=== PATIENT | female | born 1985 | race Caucasian/White ===

== ENCOUNTER 2017-01-15 04:30 | Inpatient (IN) | payer OTHER ==
[~2017-01-15] VITALS: Ht 162.6 cm; Wt 80.9 kg
[~2017-01-15 04:30] MED LIST: MONT10TA6 PO
[2017-01-15] MEDS ORDERED: LACTATED RINGERS 1,000 ML IV SCH (05:44)
[2017-01-15] MEDS ORDERED: OXYTOCIN 30U/ 0.9% NaCL 500ML 500 ML IV ONE (05:44)
[2017-01-15] MEDS ORDERED: OXYTOCIN 30U/ 0.9% NaCL 500ML 500 ML IV PRN (05:44)
[2017-01-15] MEDS ORDERED: D5%-LACTATED RINGERS 1,000 ML IV SCH (05:44)
[2017-01-15] MEDS ORDERED: NEWBORN KIT ONE (05:48)
[2017-01-15 06:00] LABS: HEMOGLOBIN 11.9 g/dL (11.7-16.4); WHITE BLOOD COUNT 15.7 x10^3/uL (3.4-10)
[2017-01-15] MEDS ORDERED: CALCIUM CARBONATE 500 MG TAB.CHEW PO PRN (06:00)
[2017-01-15] MEDS ORDERED: FENTANYL PF 100 MCG/2ML IV PRN (06:00)
[2017-01-15] MEDS ORDERED: ONDANSETRON 2MG/ML, 2ML IVPush PRN (06:00)
[2017-01-15] MEDS ORDERED: FENTANYL PF 100 MCG/2ML ONE ×2 (06:15→07:15)
[2017-01-15] MEDS: FENTANYL PF 100 MCG/2ML IVPush PRN ×2 (06:19→07:17)
[2017-01-15] MEDS ORDERED: FLU VACC QS2017-18 (36MOS+) UP/PF 0.5 ML IM-VACC ONE (06:30)
[2017-01-15] MEDS ORDERED: FENTANYL/BUPIV./NS/PF 250 ML EPIDCONT SCH (07:22)
[2017-01-15] MEDS ORDERED: FENTANYL/BUPIV./NS/PF 250 ML EPIDCONT ONE (07:23)
[2017-01-15] MEDS ORDERED: BUPIVACAINE/PF 0.25% ONE (07:23)
[2017-01-15] MEDS ORDERED: LACTATED RINGERS 1,000 ML IVBOLUS PRN (07:30)
[2017-01-15] MEDS ORDERED: EPHEDRINE 50 MG/ML, 1ML IVPush PRN (07:30)
[2017-01-15] MEDS ORDERED: NALOXONE 0.4 MG/ML, 1ML IVPush PRN (07:30)
[2017-01-15] MEDS: LACTATED RINGERS 1,000 ML IV SCH ×3 (10:52→23:22)
[2017-01-15] MEDS: OXYTOCIN 30U/ 0.9% NaCL 500ML 500 ML IV SCH (14:53)
[2017-01-15] MEDS ORDERED: ONDANSETRON 2MG/ML, 2ML IV PRN (15:00)
[2017-01-15] MEDS ORDERED: HYDROcodone/APAP 5/325 TABLET PO PRN (15:00)
[2017-01-15] MEDS ORDERED: MISOPROSTOL 200 MCG TABLET PR PRN (15:00)
[2017-01-15] MEDS ORDERED: ACETAMINOPHEN 325 MG TABLET PO PRN (15:00)
[2017-01-15] MEDS ORDERED: METHYLERGONOVINE 0.2 MG/ML IM PRN (15:00)
[2017-01-15] MEDS ORDERED: CARBOPROST TROMETHAMINE 250 MCG/ML, 1ML IM PRN (15:00)
[2017-01-15 15:50] VITALS: BP 118/75
[2017-01-15] MEDS: DOCUSATE 100 MG CAPSULE PO PRN (19:28)
[2017-01-15] MEDS: IBUPROFEN 600 MG TABLET PO PRN (19:28)
[2017-01-15 20:15] VITALS: BP 111/73
[2017-01-15] MEDS: HYDROcodone/APAP 5/325 TABLET PO PRN (22:43)
[2017-01-16 00:30] VITALS: BP 114/77
[2017-01-16] MEDS: OXYTOCIN 30U/ 0.9% NaCL 500ML 500 ML IV SCH ×2 (00:53→10:53)
[2017-01-16] MEDS: IBUPROFEN 600 MG TABLET PO PRN ×2 (03:40→11:51)
[2017-01-16] MEDS: HYDROcodone/APAP 5/325 TABLET PO PRN ×2 (03:40→11:51)
[2017-01-16 03:41] VITALS: BP 114/74
[2017-01-16 05:47] LABS: HEMOGLOBIN 12.1 g/dL (11.7-16.4); WHITE BLOOD COUNT 19.1 x10^3/uL (3.4-10)
[2017-01-16 06:45] VITALS: BP 105/70
[2017-01-16] MEDS: LACTATED RINGERS 1,000 ML IV SCH (07:22)
[2017-01-16] MEDS: DOCUSATE 100 MG CAPSULE PO PRN (08:22)
[2017-01-16] MEDS ORDERED: PRENATAL VIT/IRON/FA 1 EACH TABLET PO SCH (09:00)
[2017-01-16] MEDS ORDERED: FLU VACC QS2017-18 (36MOS+) UP/PF 0.5 ML IM-VACC ONE (11:30)
[2017-01-16 12:15] VITALS: BP 120/82
[2017-01-16 16:20] VITALS: BP 108/73
[2017-01-16] MEDS ORDERED: IBUP200T48 PO (16:21)
[2017-01-16] MEDS ORDERED: HYDR-3240 PO (16:23)
[2017-01-16] MEDS ORDERED: DOCU-131 PO (16:23)
== END 2017-01-16 16:53 | disposition home or self-care (01) | DRG 775 ==
LOC: LDOP 04:30 → EDIP 05:50 → LDIP 05:58 → 2NW 15:30
PROVIDERS: ADMIT Obstetrics & Gynecology; ATTEND Obstetrics & Gynecology
PROC: 10E0XZZ Delivery of Products of Conception, External Approach (ICD-10-PCS; principal; 2017-01-15)
PROC: 0HQ9XZZ Repair Perineum Skin, External Approach (ICD-10-PCS; 2017-01-15)
PROC: 3E033VJ Introduction of Other Hormone into Peripheral Vein, Percutaneous Approach (ICD-10-PCS; 2017-01-15)
DX: O77.0 Labor and delivery complicated by meconium in amniotic fluid (principal); J45.909 Unspecified asthma, uncomplicated; O99.52 Diseases of the respiratory system complicating childbirth; O75.89 Other specified complications of labor and delivery; O70.0 First degree perineal laceration during delivery; N89.8 Other specified noninflammatory disorders of vagina; Z37.0 Single live birth; Z3A.41 41 weeks gestation of pregnancy
CPT/HCPCS: 36415; 85025; 86850; 86900; 90686; J3010; J3490; J2590; J7120